=== PATIENT | male | born 1945 | race Caucasian/White ===

== ENCOUNTER 2017-05-20 09:05 | Emergency (ER) | payer OTHER ==
[~2017-05-20] VITALS: Ht 175.3 cm; Wt 103.5 kg
[~2017-05-20 09:05] MED LIST: ADULT LOW DOSE81 M1 PO; ATORVASTATIN CA80 MG PO; AUGMENTIN875 MG PO; DAILY VALUE1 EACH PO; EDEX20 MCG IC; FISH OIL DR 1,1 EAC1 PO; FISH OIL SOFTG1 EACH PO; GLIMEPIRIDE1 MG PO; GLIPIZIDE10 M1 PO; JANUVIA25 M1 PO; LISINOPRIL20 MG PO; LOSARTAN POTASS50 MG PO; MECLIZINE HCL25 MG PO; TERBINAFINE HC250 MG PO; UREA198.6 GM TP; ZESTRIL10 MG PO
[2017-05-20 10:04] LABS: HEMATOCRIT 48.3 % (38.0-50.0); HEMOGLOBIN 16.6 G/DL (12.5-16.6); MCH 30.7 PG (29.0-34.0); MCHC 34.4 G/DL (30.0-36.0); MCV 89.4 FL (86-99); RBC DIS.WIDTH-CV 12.9 % (11.8-14.6); RBC DIS.WIDTH-SD 42.2 % (39-53)
[2017-05-20 10:14] LABS: ALBUMIN 4.1 g/dL (3.2-4.8); CHLORIDE 110 mEq/L (99-109); SODIUM 140 mEq/L (136-147)
[2017-05-20 10:16] LABS: GLUCOSE 151 mg/dL (70-99); POTASSIUM 5.6 mEq/L (3.7-5.4)
[2017-05-20 10:17] LABS: TOTAL PROTEIN 7.3 g/dL (6.4-8.3)
[2017-05-20 10:18] LABS: TOTAL BILIRUBIN 0.6 mg/dL (0.0-1.0)
[2017-05-20 10:20] LABS: ALKALINE PHOSPHATASE 53 IU/L (3-129); CREATININE 1.3 mg/dL (0.6-1.3); GFR ESTIMATE (CALCULATED) 58 mL/min/ (58.99-99999)
[2017-05-20 10:21] LABS: UREA NITROGEN (BUN) 31 mg/dL (9-23)
[2017-05-20 10:22] LABS: AST (GOT) 36 IU/L (2-34)
[2017-05-20 10:23] LABS: ALT (GPT) 30 IU/L (3-49)
[2017-05-20 10:26] LABS: TROP-I INTERPRETATION NEGATIVE; TROPONIN-I < 0.01 ng/mL (0.0-0.30)
[2017-05-20 10:45] LABS: PLAT.SUFFICIENCY ADEQUATE; PLATELET COUNT 162 K/uL (156-360)
[2017-05-20] MEDS ORDERED: MECLIZINE HCL25 MG PO (12:16)
[2017-05-20 12:48] VITALS: BP 144/78
== END 2017-05-20 13:07 | disposition home or self-care (01) ==
LOC: EME 09:05
PROVIDERS: Emergency Medicine
DX: S06.0X9A Concussion with loss of consciousness of unspecified duration, initial encounter (principal); W00.0XXA Fall on same level due to ice and snow, initial encounter; R42 Dizziness and giddiness; E87.5 Hyperkalemia; I12.9 Hypertensive chronic kidney disease with stage 1 through stage 4 chronic kidney disease, or unspecified chronic kidney disease; E11.22 Type 2 diabetes mellitus with diabetic chronic kidney disease; N18.2 Chronic kidney disease, stage 2 (mild); E78.5 Hyperlipidemia, unspecified; Z85.46 Personal history of malignant neoplasm of prostate; Z79.82 Long term (current) use of aspirin
CPT/HCPCS: 70450; 80053; 84132 91; 84484; 85027; 93005; 99281; 99285; J2405; J7030